=== PATIENT | female | born 1965 | race Caucasian/White ===

== ENCOUNTER → 2023-06-15 13:39 | Outpatient (REF) | payer OTHER, SELFPAY | LOC: MRI 3T 13:39 | PROVIDERS: ATTENDING PHYSICIAN Internal Medicine Hematology & Oncology; FAMILY PHYSICIAN Family Medicine | DX: C50.611 Malignant neoplasm of axillary tail of right female breast (principal); Z15.01 Genetic susceptibility to malignant neoplasm of breast; G47.01 Insomnia due to medical condition | CPT/HCPCS: 77049; A9585 ==

== ENCOUNTER → 2023-12-24 15:17 | Outpatient (REF) | payer OTHER, SELFPAY | LOC: HWWDC 15:17 | PROVIDERS: ATTENDING PHYSICIAN Internal Medicine Hematology & Oncology; FAMILY PHYSICIAN Family Medicine; REFERRING PHYSICIAN Obstetrics & Gynecology | DX: Z12.31 Encounter for screening mammogram for malignant neoplasm of breast (principal) | CPT/HCPCS: 77063; 77067 ==

== ENCOUNTER → 2024-06-19 08:40 | Outpatient (REF) | payer OTHER, SELFPAY | LOC: MRI 3T 08:40 | PROVIDERS: ATTENDING PHYSICIAN Internal Medicine Hematology & Oncology; FAMILY PHYSICIAN Family Medicine | DX: C50.611 Malignant neoplasm of axillary tail of right female breast (principal); Z15.01 Genetic susceptibility to malignant neoplasm of breast | CPT/HCPCS: 77049; A9585 ==

== ENCOUNTER 2024-07-25 19:34 | Emergency (ER) | payer OTHER, SELFPAY ==
[2024-07-25 19:35] VITALS: BP 172/85
[2024-07-25 19:55] LABS: % Basophils 0.4 % (0-2); % Immature Granulocytes 0.3 % (0-0.5); % Lymphocytes 17.7 % (20.5-51.1); % Monocytes 9.1 % (1.7-9.3); % Neutrophils 72.5 % (42.2-75.2); Absolute Basophils 0.1 10^3/uL (0-0.2); Absolute Lymphocytes 2.1 10^3/uL (1.2-3.4); Absolute Monocytes 1.1 10^3/uL (0.1-0.6); Absolute Neutrophils 8.5 10^3/uL (1.4-6.5); Hematocrit 41.5 % (37.0-47.0); Hemoglobin 14.2 g/dL (12.0-16.0); Mean Corp Hgb Conc. 34.2 g/dL (33.0-37.0); Mean Corpuscular Hgb 32.1 pg (27.0-31.0); Mean Corpuscular Volume 93.7 fL (81.0-99.0); Mean Platelet Volume 9.1 fL (7.4-10.4); Nucleated Red Blood Cells % 0 %; Platelet Count 243 10^3/uL (130-400); Red Blood Cell Count 4.43 10^6/uL (4.20-5.40); Red Cell Dist. Width 13.1 % (11.5-14.5); Urine Albumin 3+ (Neg - Trace); Urine Bilirubin Negative (Negative); Urine Character Clear (Clear); Urine Color Yellow; Urine Glucose Negative (Negative); Urine Ketone Negative (Negative); Urine Leukocyte 3+ (Negative); Urine Nitrite Negative (Negative); Urine Occult Blood 4+ (Negative); Urine Urobilinogen Negative (Neg - 1+); White Blood Cell Count 11.8 10^3/uL (4.8-10.8)
[2024-07-25 20:00] LABS: Urine Squamous Cell 0-2 /LPF (Few)
[2024-07-25 20:01] LABS: Urine White Cell 70-80 /HPF (0-5)
[2024-07-25 20:02] LABS: Urine Bacteria Moderate (Negative); Urine Red Blood Cell >100 /HPF (0-2)
[2024-07-25 20:16] LABS: ALT (SGPT) 22 U/L (0-35); AST (SGOT) 25 U/L (14-36); Albumin 5.1 g/dl (3.5-5.0); Alkaline Phosphatase 65 U/L (38-126); Blood Urea Nitrogen 22 mg/dl (7-17); Calcium 9.5 mg/dl (8.4-10.2); Carbon Dioxide 28 mmol/L (22-30); Chloride 101 mmol/L (98-107); Glucose 117 mg/dl (70-99); Potassium 3.7 mmol/L (3.5-5.1); Sodium 137 mmol/L (135-145); Total Bilirubin 0.6 mg/dl (0.2-1.3); eGFR > 60.00
[2024-07-25 23:21] VITALS: BP 172/94
--- NOTE | 2024-07-25 23:36 | ED.GENMED ---
History of Present Illness
<González Key PA-C - Last Filed: 07/26/24 00:48>
General
Chief Complaint: Urinary Symptoms
Source: patient
Time Seen by Provider: 07/25/24 23:18
History of Present Illness
History of Present Illness:
59-year-old female medical history of breast cancer presenting to the emergency department at the request of her primary doctor's office for evaluation of urinary frequency, urgency and bladder discomfort/flank pain that has been ongoing for the
last week, worse over the last 24 to 48 hours. Symptoms are accompanied with some mild nausea but no vomiting, no fevers, chills, rigors. Patient has had urinary tract infections in the past but states this is usually accompanied with dysuria
which she is not having presently. She did not take any medications other than some Tylenol earlier today and has not been on any antibiotics.
Past History
<González Key PA-C - Last Filed: 07/26/24 00:48>
Past History
ED Past Medical History: Cancer
ED Past Surgical History: Orthopedic
Social History
Tobacco: Non-smoker
Alcohol: None
Drug: None
Personal:
Living: with family
Review of Systems
<González Key PA-C - Last Filed: 07/26/24 00:48>
Review of Systems
All Other Systems: ROS reviewed and negative except as documented in HPI and ROS
Phy Exam
<González Key PA-C - Last Filed: 07/26/24 00:48>
Physical Exam
Physical Exam:
GENERAL: Alert , in no apparent distress
EYE: clear conjunctiva b/l
HEAD: NCAT
ENT: mmm.
CARDIAC: Regular rate and rhythm .
LUNGS: Clear breath sounds bilaterally, no acute respiratory distress, no wheezes/rales/rhonchi
ABDOMEN: Soft, mild suprapubic tenderness , no r/g, no cvat
NEUROLOGICAL: Alert and oriented
SKIN: Warm and dry, skin intact.
MUSCULOSKELETAL: well perfused.
PSYCH: Normal and appropriate interaction.
Scores
<González Key PA-C - Last Filed: 07/26/24 00:48>
Heart Failure Risk
Heart Failure Risk Score: Not Applicable
Heart Score for Chest Pain Patients
STEMI patient?: Not applicable
Withdrawal Assessment of Alcohol
Withdrawal Assessment Completed?: Not applicable
Course
<González Key PA-C - Last Filed: 07/26/24 00:48>
Orders/Labs/Results
Orders:
Orders
07/25/24 19:48
Complete Blood Count/With Diff Urgent
Comprehensive Metabolic Panel Urgent
Urine Microscopic Reflex Cult Urgent
Urine Reflex Culture from UA [Urinalysis Reflex To Culture] Urgent
Date Specimen was Collected: 07/25/24
Time Specimen was Collected: 19:42
Urine Culture Urgent
FREDO Source: U
Specimen Description:
Date Specimen was Collected: 07/25/24
Time Specimen was Collected: 19:42
07/25/24 23:27
Cephalexin Monohydrate [Keflex] 500 mg PO NOW STA
Ibuprofen [Motrin] 600 mg PO NOW STA
Phenazopyridine HCl [Pyridium] 200 mg PO NOW STA
07/26/24
CT Abd/pel Without Iv Or Oral Urgent
Reason For Exam: flank pain, UTI
Abnormal Lab Results
07/25/24
19:48
WBC 11.8 H 10^3/uL
(4.8-10.8)
MCH 32.1 H pg
(27.0-31.0)
Absolute Neuts (auto) 8.5 H 10^3/uL
(1.4-6.5)
Absolute Monos (auto) 1.1 H 10^3/uL
(0.1-0.6)
Lymphocytes % 17.7 L %
(20.5-51.1)
BUN 22 H mg/dl
(7-17)
Glucose 117 H mg/dl
(70-99)
Albumin 5.1 H g/dl
(3.5-5.0)
Ur Occult Blood Reflex 4+ A
(Negative)
Leukocyte Esterase Rfl 3+ A
(Negative)
Urine RBC >100 A /HPF
(0-2)
Urine WBC (Reflex) 70-80 A /HPF
(0-5)
Urine Bacteria (Reflex) Moderate A
(Negative)
Urine Albumin (Reflex) 3+ A
(Neg - Trace)
07/25/24 19:48
07/25/24 19:48
Vital Signs
Initial and Last Documented VS:
Initial Vital Signs
Temp Pulse Resp BP Pulse Ox
98.4 F 65 20 172/85 99
07/25/24 19:35 07/25/24 19:35 07/25/24 19:35 07/25/24 19:35 07/25/24 19:35
Last Documented Vital Signs
Temp Pulse Resp BP Pulse Ox
98.5 F 53 16 135/75 97
07/26/24 01:33 07/26/24 01:33 07/26/24 01:33 07/26/24 01:33 07/26/24 01:33
Melanielt;Delmis Valerio PA-C - Last Filed: 07/26/24 06:36>
Orders/Labs/Results
Orders:
Orders
07/25/24 19:48
Complete Blood Count/With Diff Urgent
Comprehensive Metabolic Panel Urgent
Urine Microscopic Reflex Cult Urgent
Urine Reflex Culture from UA [Urinalysis Reflex To Culture] Urgent
Date Specimen was Collected: 07/25/24
Time Specimen was Collected: 19:42
Urine Culture Urgent
FREDO Source: U
Specimen Description:
Date Specimen was Collected: 07/25/24
Time Specimen was Collected: 19:42
07/25/24 23:27
Cephalexin Monohydrate [Keflex] 500 mg PO NOW STA
Ibuprofen [Motrin] 600 mg PO NOW STA
Phenazopyridine HCl [Pyridium] 200 mg PO NOW STA
07/26/24
CT Abd/pel Without Iv Or Oral Urgent
Reason For Exam: flank pain, UTI
Abnormal Lab Results
07/25/24
19:48
WBC 11.8 H 10^3/uL
(4.8-10.8)
MCH 32.1 H pg
(27.0-31.0)
Absolute Neuts (auto) 8.5 H 10^3/uL
(1.4-6.5)
Absolute Monos (auto) 1.1 H 10^3/uL
(0.1-0.6)
Lymphocytes % 17.7 L %
(20.5-51.1)
BUN 22 H mg/dl
(7-17)
Glucose 117 H mg/dl
(70-99)
Albumin 5.1 H g/dl
(3.5-5.0)
Ur Occult Blood Reflex 4+ A
(Negative)
Leukocyte Esterase Rfl 3+ A
(Negative)
Urine RBC >100 A /HPF
(0-2)
Urine WBC (Reflex) 70-80 A /HPF
(0-5)
Urine Bacteria (Reflex) Moderate A
(Negative)
Urine Albumin (Reflex) 3+ A
(Neg - Trace)
07/25/24 19:48
07/25/24 19:48
Vital Signs
Initial and Last Documented VS:
Initial Vital Signs
Temp Pulse Resp BP Pulse Ox
98.4 F 65 20 172/85 99
07/25/24 19:35 07/25/24 19:35 07/25/24 19:35 07/25/24 19:35 07/25/24 19:35
Last Documented Vital Signs
Temp Pulse Resp BP Pulse Ox
98.5 F 53 16 135/75 97
07/26/24 01:33 07/26/24 01:33 07/26/24 01:33 07/26/24 01:33 07/26/24 01:33
<González Key PA-C - Last Filed: 07/26/24 00:48>
MDM/Problems Addressed
Differential Diagnosis Includes:
Cystitis, pyelonephritis, renal/ureteral colic
MDM/Problems Addressed:
59-year-old female presenting to the ER for evaluation of 1 week of urinary frequency and urgency, worse over the last 24 hours and now with some increased suprapubic discomfort and bilateral flank pain. Labs initiated on arrival which showed
leukocytosis of near 12,000. Urinalysis was also obtained which shows 4 + microscopic hematuria, 3+ leukocytes, greater than 100 RBCs and 70-80 WBCs. I am most suspicious for cystitis but given her bilateral flank pain will obtain CT scan to
evaluate for possible infected kidney stone. Patient okay to tolerate p.o. medications. Will treat here with Motrin, Keflex and Pyridium, anticipate discharging home on same pending CT results.
<González Key PA-C - Last Filed: 07/26/24 00:48>
*Pulse Oximetry
Patient hypoxic: no
<Delmis Valerio PA-C - Last Filed: 07/26/24 06:36>
*Critical Care Note
Total Time (30-74mins, 75-104mins- exclusive of procedures): Not Applicable
<Delmis Valerio PA-C - Last Filed: 07/26/24 06:36>
Update Note
Update Note:
Update
I received patient in sign out
On my assessment, she is well-appearing, in no acute distress, patient states that she is pain-free at this time
CT scan is negative for kidney stone but does show left ureteral stranding concerning for ascending infection. No evidence of perinephric stranding. Will switch to third-generation cephalosporin for broader coverage to cover for pyelonephritis.
Cefpodoxime sent to the patient's pharmacy. Patient stable for discharge. Strict return precautions discussed.
ED Attending Note
<González Key PA-C - Last Filed: 07/26/24 00:48>
-
Portions of this chart may have been created with voice recognition software.� Occasional wrong word or��sound alike� substitutions may have occurred due to the inherent limitations of voice recognition software.
Discharge Plan
Departure
Patient Disposition: Home (Routine Discharge)
Date of Disposition: 07/26/24
Time of Disposition: 02:32
Patient with high blood pressure during this ER visit?: Yes
Condition: Good
Discharge Problem:
Urinary tract infection
Instructions: Urinary Tract Infection, Adult (DC), Blood in the Urine (Hematuria), Adult (DC)
Prescriptions:
New
phenazopyridine [Pyridium] 200 mg tablet
200 mg PO Q8H PRN (Reason: Pain) Qty: 6 0RF
cefpodoxime 200 mg tablet
200 mg PO BID 10 Days Qty: 20 0RF
No Action
zinc 15 mg Tablet
15 mg PO DAILY
calcium 500 mg Tablet
1,000 mg PO DAILY
Vitamin B-6 200 mg Tablet
200 mg PO DAILY
exemestane 25 mg Tablet
25 mg PO DAILY
vitamin B complex Tablet
1 tab PO DAILY
aspirin 81 mg Tablet
81 mg PO DAILY
magnesium 200 mg Tablet
400 mg PO DAILY
zolpidem 12.5 mg Tablet,Ext Release Multiphase
25 mg PO HS
Vitamin D3 100 mcg (4,000 unit) Capsule
2,000 unit PO DAILY
fezolinetant 45 mg Tablet
45 mg PO DAILY
Referrals:
Jim Gracia MD [Active] - Call in 1-3 days for appt
Aubrey Wilson DO [Family Provider] -
Activity Restrictions/Additional Instructions:
Your CT scan revealed stranding around the left ureter which is concerning for an ascending urinary tract infection. Cefpodoxime has been sent to your pharmacy. Please take 1 tablet twice daily for 10 days. Please follow-up with your primary care
provider.
PLEASE RETURN TO EMERGENCY DEPARTMENT IMMEDIATELY SHOULD YOU DEVELOP FEVERS OR CHILLS, NAUSEA OR VOMITING, ACUTE WORSENING OF HER PAIN, OR ANY OTHER SIGNS OR SYMPTOMS WORRISOME TO YOU.
Interventions
Interventions:
*Risk Screen - Suicide Last Done: 07/25/24 19:35
*General Assessment Last Done: 07/25/24 19:35
*Neglect/Abuse Screening Last Done: 07/25/24 19:35
*ED- Fall Risk Assessment Last Done: 07/25/24 19:35
*ED COVID-19 Vaccine History Last Done: 07/25/24 19:35
*Nursing Disposition Last Done: 07/26/24 02:35
ED-Female Genitourinary Assessment Last Done: 07/26/24 01:28
Discharge Date and Time
Discharge Date/Time: 07/26/24 02:35
Print Language: OMANI
[2024-07-25] MEDS: Pyridium 200 MG PO (23:39)
[2024-07-25] MEDS: MOTRIN 600 MG PO (23:39)
[2024-07-25] MEDS: KEFLEX 500 MG PO (23:40)
[2024-07-26 01:33] VITALS: BP 135/75
== END 2024-07-26 02:35 | disposition home or self-care (01) ==
LOC: EMR 19:34
PROVIDERS: Emergency Medicine; EMERGENCY PHYSICIAN Student in an Organized Health Care Education/Training Program; FAMILY PHYSICIAN Family Medicine
DX: N39.0 Urinary tract infection, site not specified (principal); R03.0 Elevated blood-pressure reading, without diagnosis of hypertension
CPT/HCPCS: 99285; 74176; 80053; 81003; 81015; 85025; 87086

== ENCOUNTER → 2024-12-25 08:49 | Outpatient (REF) | payer OTHER, SELFPAY | LOC: HWWDC 08:49 | PROVIDERS: ATTENDING PHYSICIAN Internal Medicine Hematology & Oncology; FAMILY PHYSICIAN Family Medicine | DX: Z12.31 Encounter for screening mammogram for malignant neoplasm of breast (principal) | CPT/HCPCS: 77063; 77067 ==

== ENCOUNTER → 2025-02-14 09:54 | Outpatient (REF) | payer OTHER, SELFPAY | LOC: HWRAD 09:54 | PROVIDERS: ATTENDING PHYSICIAN Nurse Practitioner Family | DX: M85.80 Other specified disorders of bone density and structure, unspecified site (principal) | CPT/HCPCS: 77080 ==